=== PATIENT | male | born 1955 | race African-American/Black ===

== ENCOUNTER 2019-01-22 00:28 | Emergency (ER) | payer MEDICAID ==
[~2019-01-22] VITALS: Ht 182.9 cm; Wt 80.0 kg
[2019-01-22] MEDS ORDERED: KETOROLAC 60MG/2ML VIAL IM STA (02:13)
[2019-01-22] MEDS ORDERED: SODIUM CHLORIDE 0.9% 1,000 ML IV ONE (02:27)
[2019-01-22] MEDS ORDERED: KETOROLAC 30MG/ML VIAL IV STA (02:27)
[2019-01-22] MEDS ORDERED: DIPHENHYDRAMINE 50MG/ML VIAL IV ONE (02:30)
[2019-01-22] MEDS ORDERED: METOCLOPRAMIDE HCL 10MG/2ML VIAL IV ONE (02:30)
[2019-01-22] MEDS ORDERED: METOCLOPRAMIDE HCL 10MG/2ML VIAL IM ONE (02:30)
[2019-01-22 03:24] LABS: BASOPHILS % 0.6 % (0.0-2.0); EOSINOPHILS % 0.8 % (0.0-5.0); HEMATOCRIT. 42.1 % (42.0-52.0); HEMOGLOBIN. 14.4 g/dL (14.0-18.0); LYMPHOCYTES % 26.1 % (20.0-50.0); MEAN CORPUSCULAR HEMOGLOBIN 30.9 pg (28.0-32.0); MEAN CORPUSCULAR VOLUME 90.8 fL (80.0-94.0); MEAN PLATELET VOLUME 8.4 fl (7.4-10.4); MONOCYTES % 7.9 % (2.0-8.0); NEUTROPHILS % 64.6 % (40.0-76.0); PLATELET 184 x1000/uL (130-400); RED BLOOD CELL COUNT 4.64 mill/uL (4.7-6.1); RED CELL DISTRIBUTION WIDTH 13.7 % (11.6-14.6)
[2019-01-22 03:30] LABS: CHLORIDE 109 mEq/L (98-107); INR 1.1; PROTHROMBIN TIME 11.2 sec (9.6-11.0)
[2019-01-22 04:28] LABS: CLARITY URINE CLEAR (CLEAR); COLOR URINE YELLOW (YELLOW); KETONES URINE NEGATIVE (NEGATIVE); LEUKOCYTE ESTERASE URINE NEGATIVE (NEGATIVE); NITRITE URINE NEGATIVE (NEGATIVE); OCCULT BLOOD URINE NEGATIVE (NEGATIVE); PROTEIN URINE NEGATIVE (NEGATIVE); UROBILINOGEN URINE 0.2 E.U./dL (0.2-1.0)
[2019-01-22 06:45] VITALS: BP 109/62
== END 2019-01-22 06:46 | disposition home or self-care (01) ==
LOC: ER 00:28
DX: F43.20 Adjustment disorder, unspecified (principal); R51 Headache; H53.9 Unspecified visual disturbance; Z88.5 Allergy status to narcotic agent
CPT/HCPCS: 36415; 70450; 80053; 81003; 85025; 85610; 96374; 96375; 99284; J1200; J1885; J2765; J7030; Z7610